=== PATIENT | male | born 1945 | race Caucasian/White ===

== ENCOUNTER 2021-07-07 12:26 | Outpatient (CLI) | payer MEDICARE, BC ==
[~2021-07-07] VITALS: Ht 177.8 cm; Wt 126.0 kg
[~2021-07-07 12:26] MED LIST: CELEXA40 MG PO; GLUCOPHAGE XR750 MG PO; LIPITOR20 MG PO; RISPERDAL M-TA0.5 MG PO; ZESTRIL 20MG TA20 MG PO
[2021-07-07 12:51] VITALS: BP 167/81; PULSE 59; TEMP 97.8
[2021-07-07 14:09] VITALS: BP 134/72; PULSE 66
[2021-07-07 14:15] VITALS: BP 126/70; PULSE 63
[2021-07-07 14:30] VITALS: BP 131/66; PULSE 59
[2021-07-07 14:45] VITALS: BP 136/74; PULSE 61
[2021-07-07 15:00] VITALS: BP 136/74; PULSE 59
--- NOTE | 2021-07-07 15:05 | NUR ---
Bandaid remains clean, dry and intact. Pt denies headache or other complaints. He is assisted out by wheelchair to 's car.
== END 2021-07-07 15:05 | disposition home or self-care (01) ==
LOC: COL.RAD 12:26
DX: M54.50 Low back pain, unspecified (principal); M48.061 Spinal stenosis, lumbar region without neurogenic claudication; M48.07 Spinal stenosis, lumbosacral region; Z96.82 Presence of neurostimulator; Z98.1 Arthrodesis status; Z98.890 Other specified postprocedural states; Z96.89 Presence of other specified functional implants
CPT/HCPCS: Q9965

== ENCOUNTER → 2021-09-02 | Outpatient (CLI) | payer MEDICARE, OTHER | LOC: MHCPAIN 14:14 | DX: M47.816 Spondylosis without myelopathy or radiculopathy, lumbar region (principal); M53.3 Sacrococcygeal disorders, not elsewhere classified; M54.16 Radiculopathy, lumbar region; M96.1 Postlaminectomy syndrome, not elsewhere classified | CPT/HCPCS: G0463 ==

== ENCOUNTER → 2021-09-02 | Outpatient (CLI) | payer MEDICARE, OTHER | LOC: COL.RAD 15:51 | DX: M43.17 Spondylolisthesis, lumbosacral region (principal); Z96.642 Presence of left artificial hip joint ==

== ENCOUNTER → 2021-09-17 | Outpatient (CLI) | payer MEDICARE, OTHER | LOC: MHCPAIN 12:34 | DX: M47.817 Spondylosis without myelopathy or radiculopathy, lumbosacral region (principal); M53.3 Sacrococcygeal disorders, not elsewhere classified; M54.16 Radiculopathy, lumbar region | CPT/HCPCS: J1100; Q9967 ==

== ENCOUNTER → 2021-10-19 | Outpatient (CLI) | payer MEDICARE, OTHER | LOC: MHCPAIN 12:09 | DX: M47.817 Spondylosis without myelopathy or radiculopathy, lumbosacral region (principal); M53.3 Sacrococcygeal disorders, not elsewhere classified; M54.16 Radiculopathy, lumbar region | CPT/HCPCS: J1100; Q9967 ==